=== PATIENT | female | born 2000 | race Caucasian/White ===

== ENCOUNTER → 2020-12-24 08:08 | Outpatient (BNVA) | payer BC, SELFPAY | PROVIDERS: Family Provider Family Medicine; PCP Family Medicine; Referring Provider Nurse Practitioner Family; Visit Provider Internal Medicine | DX: E03.9 Hypothyroidism, unspecified (principal); E66.01 Morbid (severe) obesity due to excess calories; Z68.43 Body mass index [BMI] 50.0-59.9, adult; R68.82 Decreased libido | CPT/HCPCS: 99204 ==

== ENCOUNTER 2022-03-16 18:26 | Emergency (ER) | payer SELFPAY ==
[2022-03-16 18:48] VITALS: BP 158/102; PULSE 98; RESP 18; TEMP 37; O2SAT 97; BMI 50.8
[2022-03-16 18:58] VITALS: BP 158/102; PULSE 98; RESP 18; O2SAT 97
--- NOTE | 2022-03-16 19:01 | ED_ITS ---
HPI - Allergic Reaction General: Chief complaint: Allergic Reaction Stated complaint: allergic reaction to dying hair Time Seen by Provider: 03/16/22 18:53 History of Present Illness: HPI narrative: Patient is a 21-year-old female comes to the ED with an allergic reaction. Patient dyed her hair 3days ago on March 13 and it caused some sores in swelling on her scalp. This morning patient woke up and had bilateral periorbital swelling along with itching of her face. Denies any throat swelling, lip or tongue swelling or any trouble breathing. Denies any eye pain or vision changes. Associated symptoms: Reports facial swelling (bilateral periorbital swelling); Deny abdominal pain, nausea, tongue swelling or vomiting Review of Systems Const: Denies: fever(s), chills or fatigue Eyes: Denies: change in vision or eye discomfort ENMT: Denies: throat pain, odynophagia, nasal discharge or nasal congestion Card: Denies: chest pain, palpitations, edema, swelling of feet/ankles, dyspnea on exertion or orthopnea Resp: Denies: dyspnea, productive cough or non-productive cough GI: Denies: abdominal pain, nausea, vomiting, diarrhea, constipation or hematochezia : Denies: flank pain, dysuria or hematuria Musc: Denies: neck pain, back pain or extremity swelling Skin/Breast: Denies: rash or new lesions Neuro: Denies: headache(s), numbness in extremities or weakness in extremities All/Imm: Reports: facial swelling (bilateral periorbital swelling); Denies: throat swelling or tongue swelling PFS ED PFSH: Medical History Hypothyroidism Surgical History No history of previous surgery Family History Father Lisa's disease Other Cancer Social History Smoking and tobacco status: current every day smoker Second hand smoke exposure: Yes Smoking risk assessment/counseling performed?: No Alcohol intake: current Alcohol intake frequency: holidays/special occasions only Desire information about alcohol rehabilitation?: No Counseling given: No Female Reproductive History: Date of last menstrual period: 02/13/22 Physical Exam Const: COMMON NORMALS: no acute distress, patient oriented x3 and alert GENERAL APPEARANCE: cooperative HENMT: COMMON NORMALS: normocephalic HEAD & SCALP: normocephalic MOUTH: Normal oral and palatal mucosa present, lip normal and tongue normal THROAT: posterior oropharynx normal and uvula midline Eye: COMMON NORMALS: Equal, round and reactive pupils present, EOMs intact bilaterally and conjunctivae normal PERIORBITAL: periorbital findings abnormal positive bilateral periorbital swelling CONJUNCTIVA: Yes co njunctivae normal PUPIL: Yes Equal, round and reactive pupils present Neck/C-Spine: COMMON NORMALS: supple GENERAL: Yes normal visual inspection Resp: COMMON NORMALS: normal respiratory effort, No retractions, No use of accessory muscles and clear to auscultation bilaterally AUSCULTATION: clear to auscultation bilaterally Cardio: COMMON NORMALS: regular rate, regular rhythm, S1 normal heart sound present, S2 normal heart sound present, No gallops present (Cardio), No clicks present (Cardio), No murmurs present (Cardio) and Peripheral pulses 2+ through out RATE: regular rate RHYTHM: regular rhythm HEART SOUNDS: S1 normal heart sound present and S2 normal heart sound present PERIPHERAL PULSES: Peripheral pulses 2+ throughout GI: COMMON NORMALS: Normal to inspection, nondistended, normoactive bowel sounds present, Soft to palpation, non-tender and no masses PALPATION: Yes Soft to palpation : COMMON NORMALS: Yes no CVA tenderness BLADDER/KIDNEY EXAM: Yes no CVA tenderness Back/Pelvis: COMMON NORMALS: no CVA tenderness Neuro: COMMON NORMALS: patient oriented x3 and moves all extremities SENSORIUM/ORIENTATION: Yes alert Skin: GENERAL SKIN EXAM: dry skin Course Reevaluation(s): Reevaluation #1: Checked on patient an hour after she received the steroid shot and her periorbital swelling had improved in both eyes. Patient says she feels like the swelling in her eyes has gotten better as well. Time: 20:22 Vital Signs: Vital signs: Vital Signs Temperature 98.6 F 03/16/22 18:48 Pulse Rate 98 03/16/22 18:58 Respiratory Rate 18 03/16/22 18:58 Blood Pressure 158/102 03/16/22 18:58 Pulse Oximetry 97 03/16/22 18:58 MDM - Allergic Reaction Medical Decision Making Patient is a 21-year-old female comes to the ED with an allergic reaction after dying hair. After dying her hair she was having scalp swelling and itching that then the next day resulted in bilateral periorbital swelling. Denies any vision changes, eye pain. Denies any lip or tongue swelling or any trouble breathing. Patient was given IM Solu-Medrol and p.o. Benadryl here in the ED. Her periorbital swelling improved. She is diagnosed with allergic reaction and was discharged home with a prescription for a couple days worth of prednisone. She was told to follow-up with her PCP in the next 7 days reevaluation. Strict return to ED precautions given. Patient understood and agreed with plan. Lab Data Laboratory Results HCG, Qual Negative (Negative) 03/16/22 19:25 Urine Color Yellow (Yellow) 03/16/22 19:25 Urine Appearance Clear (CLEAR) 03/16/22 19:25 Urine pH 5 (5-7) 03/16/22 19:25 Ur Specific [place] 1.030 (1.005-1.030) 03/16/22 19:25 Urine Protein Neg (Negative) 03/16/22 19:25 Urine Glucose (UA) Norm (Normal) 03/16/22 19:25 Urine Ketones Negative (Negative) 03/16/22 19:25 Urine Blood Neg (Negative) 03/16/22:25 Urine Nitrate Negative (Negative) 03/16/22 19:25 Urine Bilirubin Neg (Negative) 03/16/22 19:25 Urine Urobilinogen Norm mg/dL (Negative) 03/16/22 19:25 Ur Leukocyte Esterase Trace (Negative) H 03/16/22 19:25 Urine RBC 0-4 /hpf (0-2) H 03/16/22 19:25 Urine WBC 5-10 /hpf (0-5) H 03/16/22 19:25 Ur Squamous Epith Cells 5-10 /hpf (0-5) H 03/16/22 19:25 Amorphous Sediment Not Reportable 03/16/22 19:25 Urine Bacteria 1+ /hpf (NONE) H 03/16/22 19:25 Discharge Plan Discharge Patient Disposition: Home Clinical Impression: Allergic reaction Qualifiers: Encounter type: initial encounter Qualified Code(s): T78.40XA - Allergy, unspecified, initial encounter Condition: Stable Prescriptions: New prednisone 20 mg tablet 20 mg PO BID 3 Days Qty: 6 0RF No Action levothyroxine 75 mcg capsule 75 mcg PO DAILY 0RF Discharge Orders: Discharge ED (Routine); Ordered 03/16/22 Ordered By: Kvng Cartwright Discharge Diet: Regular Discharge Activity: Increase activity as tolerated Patient Instructions: Allergic Reaction Activity Restrictions/Additional Instructions: Follow-up with medical provider as directed in the next 7 days for reevaluation. Take medications as prescribed. You can also take [id number] Benadryl per bottle instruction as needed to help with allergic reaction as well. Return to the ER or your medical provider if condition worsens. Please read and understand discharge instructions. Thank you for choosing [facility] for your healthcare needs today. Please realize this is an emergency room and that we are providing you with a medical screening exam and this may not be complete and all inclusive of all the testing and or work up that you may need to determine your ailment or severity of your illness. It is very important that you follow up as instructed or that you return to the Emergency Department should you have concerns or if your condition changes or worsens in any way. Coding Level of Care Code ED Mine Car Mechanic for Juliette Ken Exam Comprehensive
[2022-03-16 19:33] LABS: HCG Qualitative Urine. Negative (Negative)
[2022-03-16] MEDS: diphenhydrAMINE 25 mg Capsule PO (19:34)
[2022-03-16 20:02] LABS: Bilirubin Urine Neg (Negative); Blood Urine Neg (Negative); Glucose Urine UA Norm (Normal); Ketones Urine Negative (Negative); Nitrate Urine Negative (Negative); Protein Urine Neg (Negative); Urine Appearance Clear (CLEAR); Urine Color Yellow (Yellow); pH Urine 5 (5-7)
[2022-03-16 20:03] LABS: Add Urine Culture? Yes; Add Urine Microscopic? YES; Bacteria Urine 1+ /hpf; Leukocyte Esterase Urine Trace (Negative); RBC Urine 0-4 /hpf (0-2); Urobilinogen Urine Norm (Negative)
== END 2022-03-16 20:37 | disposition home or self-care (01) ==
PROVIDERS: Emergency Provider Physician Assistant
DX: T78.49XA Other allergy, initial encounter (principal); R22.0 Localized swelling, mass and lump, head
CPT/HCPCS: 81001; 81025; 87086; 96372; 99283; J2930

== ENCOUNTER 2024-04-29 12:26 | Emergency (ER) | payer OTHER, SELFPAY ==
[2024-04-29 12:38] VITALS: BP 149/83; PULSE 101; RESP 20; TEMP 36.8; O2SAT 100
--- NOTE | 2024-04-29 13:11 | W.ED.ALLEREA ---
HPI - Allergic Reaction General: Chief complaint: Allergic Reaction Stated complaint: SOB, dizziness, numbness, Chest tightness Time Seen by Provider: 04/29/24 13:10 History of Present Illness: HPI narrative: 23-year-old female comes in today with a sting to the right parietal scalp area. Patient had some significant swelling that seemed to improve but now has worsened after sleeping last night. Patient has a history of reactions to prior stings. Patient appears nontoxic. Patient appears in no respiratory difficulty. Review of Systems General: Reports: 10 or more systems reviewed and unremarkable except in HPI and below PFSH ED PFSH: Medical History Hypothyroidism Surgical History No history of previous surgery Family History Father Lisa's disease Other Cancer Social History Smoking and tobacco/nicotine status: current every day tobacco/nicotine user Second hand smoke exposure: Yes Alcohol intake: current Alcohol intake frequency: holidays/special occasions only Physical Exam Const: COMMON NORMALS: alert HENMT: HEAD & SCALP: other (Mild swelling right periorbital and scalp area.) Neck/C-Spine: COMMON NORMALS: full ROM Resp: COMMON NORMALS: normal respiratory effort and clear to auscultation bilaterally AUSCULTATION: clear to auscultation bilaterally Cardio: COMMON NORMALS: regular rate and regular rhythm RATE: regular rate RHYTHM: regular rhythm GI: COMMON NORMALS: Soft to palpation PALPATION: Yes Soft to palpation : COMMON NORMALS: Yes no CVA tenderness BLADDER/KIDNEY EXAM: Yes no CVA tenderness Back/Pelvis: COMMON NORMALS: no CVA tenderness Extremity: COMMON NORMALS: full ROM Neuro: SENSORIUM/ORIENTATION: Yes alert Skin: COMMON NORMALS: turgor normal GENERAL SKIN EXAM: turgor normal Course Vital Signs: Vital signs: Vital Signs Temperature 98.2 F 04/29/24 12:38 Pulse Rate 101 H 04/29/24 12:38 Respiratory Rate 20 H 04/29/24 12:38 Blood Pressure 149/83 04/29/24 12:38 Pulse Oximetry 100 04/29/24 12:38 Oxygen Delivery Me thod Room Air 04/29/24 12:38 MDM - Allergic Reaction Medical Decision Making 23-year-old female comes in today for complaints of swelling to the right face. On exam patient has some swelling to the periorbital area of the face. Respirations are even lungs are clear to auscultation. Posterior pharynx is normal. Differential diagnosis anaphylaxis, allergic reaction, local reaction to insect bite. The patient has a local reaction to a sting. Reviewed exam with patient recommended activity as tolerated. Drink plenty water and fluids. Use acetaminophen/ibuprofen and Benadryl for discomfort. Patient be given a dose of dexamethasone in the emergency room and continue on prednisone 20 mg for next 3 days. Recommended follow-up with primary care in 3 to 5 days return to ER for worsening difficulty breathing. No radiology studies performed this visit Discharge Plan Discharge Patient Disposition: Home Clinical Impression: Insect bite of head with local reaction Qualifiers: Encounter type: initial encounter Qualified Code(s): S00.96XA - Insect bite (nonvenomous) of unspecified part of head, initial encounter Condition: Stable Prescriptions: New prednisone 20 mg tablet 20 mg PO DAILY 3 Days Qty: 3 0RF No Action levothyroxine 75 mcg capsule 75 mcg PO DAILY Discharge Orders: Discharge ED (Routine); Ordered 04/29/24 Ordered By: Daren Long Discharge Diet: Usual diet Discharge Activity: Increase activity as tolerated Patient Instructions: Insect Bite or Sting (ED) Activity Restrictions/Additional Instructions: Continue with Benadryl. Drink plenty water and fluids. Use ibuprofen or Tylenol for pain. Follow-up with primary care. Return to ER for new concerns. Coding Level of Care Code ED Health Occupations Instructor for Juliette Ken
[2024-04-29] MEDS: dexamethasone 10 mg/mL INJ IM (13:27)
[2024-04-29 13:50] VITALS: BP 149/83; PULSE 95; RESP 16; O2SAT 97
== END 2024-04-29 13:52 | disposition home or self-care (01) ==
PROVIDERS: Emergency Provider Nurse Practitioner Family
DX: S00.06XA Insect bite (nonvenomous) of scalp, initial encounter (principal); W57.XXXA Bitten or stung by nonvenomous insect and other nonvenomous arthropods, initial encounter; Z72.0 Tobacco use
CPT/HCPCS: 96372; 99284; J1100

== ENCOUNTER 2024-11-17 16:43 | Emergency (ER) | payer OTHER, SELFPAY ==
--- NOTE | 2024-11-17 16:48 | ECG_ITS ---
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
[2024-11-17 16:51] VITALS: BP 167/86; PULSE 81; RESP 17; TEMP 36.7; O2SAT 98; BMI 51.3
--- NOTE | 2024-11-17 19:48 | XRR_ITS ---
PROCEDURE INFORMATION: Exam: XR Chest Exam date and time: 11/17/2024 8:18 PM Age: 24 years old Clinical indication: Chest pressure; Patient HX: Chest pain TECHNIQUE: Imaging protocol: Radiologic exam of the chest. Views: 1 view. COMPARISON: No relevant prior studies available. FINDINGS: Lungs: Unremarkable. No consolidation. Pleural spaces: Unremarkable. No pleural effusion. No pneumothorax. Heart/Mediastinum: Unremarkable. No cardiomegaly. Bones/joints: Unremarkable. XR/XR chest 1V portable [id number] IMPRESSION: No acute findings.
--- NOTE | 2024-11-17 20:39 | ED_ITS ---
HPI - Chest Pain 2 General: Chief Complaint: Chest Pain Stated Complaint: chest pain/SOB Time Seen by Provider: 11/17/24 20:10 Source: patient Mode of arrival: ambulatory Limitations: no limitations History of Present Illness: Patient is a 24-year-old female presenting to the emergency department complaining of central chest pain intermittently for the past couple of days. States it is radiating down her right arm across her chest and into her neck. Denies any personal history of heart attacks or strokes. States she has a family history of aortic issue, she is unable to elaborate on this. She has never had cardiac workup through primary care, has never had this pain before. Does not report any real shortness of breath, states that she does feel dizzy but has not passed out. Denies possibility of or any vaginal bleeding. Her vitals are normal in triage. No oral contraceptives, or history of blood clots. MD complaint: chest pain Onset (ago): day(s) Timing of current episode: episodic Prior episodes: No Onset: during rest Pain location: substernal Pain radiation: right arm, neck and right scapula Severity: moderate Quality: tightness Relieving factors: nothing Exacerbating factors: nothing Associated symptoms: Deny abdominal pain, dyspnea, fever(s), nausea, palpitations or vomiting Related Data Home Medications Medication Instructions Recorded Confirmed levothyroxine 75 mcg capsule 75 mcg PO DAILY 12/24/20 12/24/20 Allergies Allergy/AdvReac Type Severity Reaction Status Date / Time escitalopram [From Lexapro] Allergy Unknown Verified 11/17/24 16:55 Review of Systems 2 General: Reports: 10 or more systems reviewed and unremarkable except in HPI and below Const: Denies: fever(s), chills or fatigue Eyes: Denies: change in vision ENMT: Denies: throat pain, ear or mastoid pain or nasal discharge Card: Reports: chest pain; Denies: palpitations, swelling of feet/ankles or lightheadedness Resp: Denies: dyspnea, productive cough or wheezing GI: Denies: abdominal pain, nausea, vomiting, diarrhea or constipation : Denies: flank pain, difficulty voiding, dysuria or urinary frequency Musc: Reports: neck pain and back pain; Denies: joint pain Skin/Breast: Denies: rash Neuro: Reports: dizziness; Denies: headache(s), numbness in extremities or weakness in extremities PFSH ED 2 PFSH: Medical History Hypothyroidism Surgical History No history of previous surgery Family History Father Lisa's disease Other Cancer Social History Smoking and tobacco/nicotine status: current every day tobacco/nicotine user Second hand smoke exposure: Yes Alcohol intake: current Alcohol intake frequency: holidays/special occasions only Female Reproductive History: Date of last menstrual period: 10/27/24 Physical Exam 2 Const: COMMON NORMALS: no acute distress, patient oriented x3 and no limitations GENERAL APPEARANCE: cooperative, comfortable and well developed NUTRITIONAL APPEARANCE: obese morbidly obese ORIENTATION/CONSCIOUSNESS: Yes awake, Yes oriented to person, Yes oriented to place and Yes oriented to time HENMT: COMMON NORMALS: normocephalic, atraumatic and hearing grossly normal bilaterally HEAD & SCALP: normocephalic and atraumatic Eye: COMMON NORMALS: Equal, round and reactive pupils present, EOMs intact bilaterally and conjunctivae normal CONJUNCTIVA: Yes conjunctivae normal P UPIL: Yes Equal, round and reactive pupils present Neck/C-Spine: COMMON NORMALS: full ROM, supple and no JVD Resp: COMMON NORMALS: normal respiratory effort, No retractions, No use of accessory muscles and clear to auscultation bilaterally AUSCULTATION: clear to auscultation bilaterally Cardio: COMMON NORMALS: no JVD, regular rate, regular rhythm, No clicks present (Cardio), No murmurs present (Cardio) and No rub (Cardio) RATE: r egular rate RHYTHM: regular rhythm BRUITS: no abdominal aortic bruits GI: COMMON NORMALS: Normal to inspection, nondistended, normoactive bowel sounds present, Soft to palpation, non-tender and no bruits AUSCULTATION: Yes normoactive bowel sounds PALPATION: Yes Soft to palpation RECTAL EXAM: d eferred Extremity: COMMON NORMALS: normal to inspection, full ROM and capillary refill normal Neuro: COMMON NORMALS: patient oriented x3, moves all extremities, no focal motor deficits and no sensory deficits noted SENSORIUM/ORIENTATION: Yes oriented to person, Yes oriented to place and Yes oriented to time Psych: COMMON NORMALS: mental status grossly normal and Normal thought process present THOUGHT PROCESS: Normal thought process present Skin: COMMON NORMALS: no rashes or lesions noted GENERAL SKIN EXAM: no rashes or lesions noted Course 2 Vital Signs: Vital signs: Vital Signs Temperature 98.0 F 11/17/24 16:51 Pulse Rate 107 H 11/17/24 22:11 Respiratory Rate 17 11/17/24 22:11 Blood Pressure 152/104 11/17/24 22:11 Pulse Oximetry 100 11/17/24 22:11 Oxygen Delivery Me thod Room Air 11/17/24 16:51 MDM - Chest Pain Medical Decision Making Patient presenting with chest pain, shortness of breath, dizziness. EKG showing normal sinus rhythm with no acute STEMI or other abnormalities. Chest x-ray unremarkable. Troponin negative, repeat troponin also negative. D-dimer undetectable. Rest of her lab work was unremarkable aside from mild leukocytosis and low hemoglobin. Does not know if she has history of iron deficiency anemia, informed her to follow-up primary care to have this rechecked. Unknown source of the leukocytosis, though could be viral. Try GI cocktail for her pain, stated this did not help so she was given Toradol. Blood pressures had been creeping high, I suspect an element of anxiety or maybe even pain, they were noted to come back down throughout ED stay. They are not on enough to start any antihypertensive here from the emergency department, though will refer her to cardiology for further outpatient cardiac workup at her request also for reported family history of cardiac diseases. She had wanted her thyroid checked with her history of hypothyroid, told her to follow-up with primary care in regards to this as well. Told her to return with new or worsening, she agrees with this plan. Discussed case with Dr. Blanco. Lab Data 11/17/24 21:18 11/17/24 21:18 Radiology Impressions Chest X-Ray 11/17/24 19:48 IMPRESSION: No acute findings. Laboratory Results WBC 15.29 10^3/uL (3.29-11.43) H 11/17/24 21:18 RBC 4.88 10^6/uL (3.85-5.65) 11/17/24 21:18 Hgb 10.30 g/dL (11.27-16.99) L 11/17/24 21:18 Hct 34.5 % (36-47) L 11/17/24 21:18 MCV 70.7 fl (85-98) L 11/17/24 21:18 MCH 21.1 pg (27-33) L 11/17/24 21:18 MCHC 29.9 g/dL (30-55) L 11/17/24 21:18 RDW 18.8 % (12.1-15.1) H 11/17/24 21:18 Plt Count 446 10^3/cmm (157-399) H 11/17/24 21:18 MPV 9.1 fL (7.4-10.4) 11/17/24 21:18 Neut % (Auto) 62.0 % 11/17/24 21:18 Lymph % (Auto) 30.9 % 11/17/24 21:18 Bee % (Auto) 5.7 % 11/17/24 21:18 Eos % (Auto) 0.7 % 11/17/24 21:18 Baso % (Auto) 0.3 % 11/17/24:18 Neut # (Auto) 9.48 10^3/uL (1.8-7.7) H 11/17/24 21:18 Lymph # (Auto) 4.7 10^3/uL (0.8-4.8) 11/17/24 21:18 Bee # (Auto) 0.9 10^3/uL (0.2-0.9) 11/17/24 21:18 Eos # (Auto) 0.1 10^3/uL (0.0-0.8) 11/17/24 21:18 Baso # (Auto) 0.1 10^3/uL (0.0-0.1) 11/17/24:18 Nucleated RBC % (auto) 0 % 11/17/24: Nucleated RBCs # 0.0 /100WBC 11/17/24 21:18 D-Dimer <= 0.27 ug/mLFEU (0-0.59) 11/17/24 21:18 Sodium 137 mmol/L (136-145) 11/17/24 21:18 Potassium 4.1 mmol/L (3.5-5.1) 11/17/24 21:18 Chloride 102 mmol/L (98-107) 11/17/24 21:18 Carbon Dioxide 24 mmol/L (22-29) 11/17/24 21:18 Anion Gap 15.1 (5-19) 11/17/24 21:18 BUN 16 mg/dL (6-20) 11/17/24 21:18 Creatinine 0.6 mg/dL (0.5-0.9) 11/17/24 21:18 GFR Calculation 120.8 mL/min (90-130) 11/17/24 21:18 Glucose 95 mg/dL (65-115) 11/17/24 21:18 Calculated Osmolality 285 mOsm/kg (285-295) 11/17/24 21:18 Calcium 9.6 mg/dL (8.5-10.5) 11/17/24 21:18 Total Bilirubin 0.3 mg/dL (0.15-1.2) 11/17/24 21:18 AST 13 U/L (0-32) 11/17/24 21:18 ALT 16 U/L (0-33) 11/17/24 21:18 Alkaline Phosphatase 105 U/L (35-105) 11/17/24 21:18 Troponin T Baseline < 6 ng/L (0-10) 11/17/24 21:18 Total Protein 7.4 g/dL (6.6-8.7) 11/17/24 21:18 Albumin 4.3 g/dL (3.5-5.2) 11/17/24 21:18 Globulin 3.1 g/dL (1.3-4.6) 11/17/24 21:18 TSH 6.52 uIU/mL (0.27-4.20) H 11/17/24 21:18 HCG, Qual Negative (Negative) 11/17/24 21:18 Urine Color Yellow (Yellow) 11/17/24 22:57 Urine Appearance Cloudy (CLEAR) A 11/17/24 22:57 Urine pH 6.0 (5-7) 11/17/24 22:57 Ur Specific [place] 1.016 (1.005-1.030) 11/17/24 22:57 Urine Protein Negative (Negative) 11/17/24 22:57 Urine Glucose (UA) Negative (Normal) 11/17/24 22:57 Urine Ketones Negative (Negative) 11/17/24 22:57 Urine Blood Negative (Negative) 11/17/24 22:57 Urine Nitrate Negative (Negative) 11/17/24 22:57 Urine Bilirubin Negative (Negative) 11/17/24 22:57 Urine Urobilinogen 1.0 mg/dL (Negative) 11/17/24 22:57 Ur Leukocyte Esterase 2+ (Negative) A 11/17/24 22:57 Urine RBC 0-2 /hpf (0-2) 11/17/24 22:57 Urine WBC 6-10 /hpf (0-5) 11/17/24 22:57 Ur Squamous Epith Cells 6-10 /hpf (0-5) 11/17/24 22:57 Amorphous Sediment Not Reportable 11/17/24 22:57 Urine Bacteria 1+ /hpf (NONE) H 11/17/24 22:57 Hyaline Casts 0.40 /lpf 11/17/24 22:57 All radiology interpretation(s) finalized by discharge Discharge Plan Discharge Patient Disposition: Home Clinical Impression: Chest pain, Anemia, Leukocytosis Condition: Stable Prescriptions: No Action levothyroxine 75 mcg capsule 75 mcg PO DAILY Discharge Orders: Discharge ED (Routine); Ordered 11/17/24 Ordered By: Vladimir Hatch Patient Instructions: Chest Pain (ED) Activity Restrictions/Additional Instructions: Follow-up with cardiology. Also follow-up with primary care to discuss your labs, may require recheck of your blood count. Also discuss thyroid medications. Cardiac workup here in the emergency department was negative, however return with any new or worsening of your symptoms. Make sure to drink plenty of fluids. Coding Level of Care Code ED Inspector [employer] for Juliette Ken
[2024-11-17 21:25] LABS: Basophils # 0.1 10^3/uL (0.0-0.1); Basophils % 0.3 %; Eosinophils # 0.1 10^3/uL (0.0-0.8); Eosinophils % 0.7 %; Hematocrit 34.5 % (36-47); Lymphocytes # 4.7 10^3/uL (0.8-4.8); Lymphocytes % 30.9 %; Mean Corpuscular HGB Conc 29.9 g/dL (30-55); Mean Corpuscular Hemoglobin 21.1 pg (27-33); Mean Corpuscular Volume 70.7 fl (85-98); Mean Platelet Volume 9.1 fL (7.4-10.4); Monocytes # 0.9 10^3/uL (0.2-0.9); Monocytes % 5.7 %; Neutrophils # 9.48 10^3/uL (1.8-7.7); Nucleated Red Blood Cells % 0 %; Platelet Count 446 10^3/cmm (157-399); Red Blood Count 4.88 10^6/uL (3.85-5.65); Red Cell Distribution Width 18.8 % (12.1-15.1); White Blood Count 15.29 10^3/uL (3.29-11.43)
[2024-11-17 21:42] VITALS: BP 146/104; PULSE 86; RESP 19; O2SAT 99
[2024-11-17 21:46] LABS: HCG, Serum Qual Negative (Negative)
[2024-11-17 21:50] LABS: D Dimer <= 0.27 ug/mLFEU (0-0.59)
[2024-11-17 21:53] LABS: Troponin(5th) Baseline < 6 ng/L (0-10)
[2024-11-17 21:56] LABS: Alanine Aminotransferase 16 U/L (0-33); Albumin Level 4.3 g/dL (3.5-5.2); Alkaline Phosphatase 105 U/L (35-105); Anion Gap 15.1 (5-19); Aspartate Amino Transferase 13 U/L (0-32); Blood Urea Nitrogen 16 mg/dL (6-20); Calcium 9.6 mg/dL (8.5-10.5); Carbon Dioxide 24 mmol/L (22-29); Chloride 102 mmol/L (98-107); Creatinine Clr Calc Pharmacy 188.5441; Globulin 3.1 g/dL (1.3-4.6); Glomerular Filtration Rate 120.8 mL/min (90-130); Glucose 95 mg/dL (65-115); Osmolality Calculated 285 mOsm/kg (285-295); Potassium 4.1 mmol/L (3.5-5.1); Sodium 137 mmol/L (136-145); Total Bilirubin 0.3 mg/dL (0.15-1.2); Total Protein 7.4 g/dL (6.6-8.7)
[2024-11-17] MEDS: lidocaine 2% viscous 15 ML, aluminum-mag hydrox-simethicon 30 ML, sucralfate oral liq 1 GM PO (22:07)
[2024-11-17] MEDS: sodium chloride 0.9% 1,000 ML 999 ML IV (22:08)
[2024-11-17 22:11] VITALS: BP 152/104; PULSE 107; RESP 17; O2SAT 100
[2024-11-17 22:54] LABS: Thyroid Stimulating Hormone 6.52 uIU/mL (0.27-4.20)
[2024-11-17 23:06] LABS: Bilirubin Urine Negative (Negative); Blood Urine Negative (Negative); Glucose Urine UA Negative (Normal); Ketones Urine Negative (Negative); Leukocyte Esterase Urine 2+ (Negative); Nitrate Urine Negative (Negative); Protein Urine Negative (Negative); Specific Gravity, Urine 1.016 (1.005-1.030); Urine Appearance Cloudy (CLEAR); Urine Color Yellow (Yellow)
[2024-11-17 23:10] LABS: Add Urine Microscopic? YES; Bacteria Urine 1+ /hpf; RBC Urine 0-2 /hpf (0-2)
[2024-11-17 23:43] LABS: Troponin 5 2HR Delta 0.00001 ABS# (0-10)
[2024-11-17] MEDS: ketorolac 30 mg/mL INJ IVP (23:48)
[2024-11-17 23:51] VITALS: BP 133/79; PULSE 85; RESP 18; O2SAT 100
[2024-11-18 00:02] VITALS: BP 133/79; PULSE 78; O2SAT 98
--- NOTE | 2024-11-20 08:31 | DCPLANNER ---
Message sent to Cardiology for chest pain follow up
== END 2024-11-18 00:03 | disposition home or self-care (01) ==
PROVIDERS: Emergency Medicine; Emergency Provider Physician Assistant
DX: R07.9 Chest pain, unspecified (principal); D64.9 Anemia, unspecified; D72.829 Elevated white blood cell count, unspecified; Z72.0 Tobacco use
CPT/HCPCS: 71045; 80053; 81001; 84443; 84484; 84703; 85025; 85378; 93005; 96361; 96374; 99285; J1885; J7030